=== PATIENT | male | born 1955 | race Caucasian/White ===

== ENCOUNTER 2017-08-05 15:00 | Outpatient (RCR) | payer BC ==
[~2017-08-05 15:00] MED LIST: HCT25T; LSNP20T; MULT1TAB63
== END 2017-09-06 10:12 | disposition home or self-care (01) ==
PROVIDERS: ATTEND Orthopaedic Surgery
DX: M48.07 Spinal stenosis, lumbosacral region (principal); M17.0 Bilateral primary osteoarthritis of knee

== ENCOUNTER 2017-11-01 13:00 | Outpatient (RCR) | payer BC | END 2017-11-05 15:12 | disposition home or self-care (01) | PROVIDERS: ATTEND Orthopaedic Surgery | DX: Z47.1 Aftercare following joint replacement surgery (principal); Z96.651 Presence of right artificial knee joint ==

== ENCOUNTER 2019-09-27 12:57 | Outpatient (RCR) | payer BC | END 2019-11-01 13:37 | disposition home or self-care (01) | PROVIDERS: ATTEND Nurse Practitioner Family | DX: M79.89 Other specified soft tissue disorders (principal) ==

== ENCOUNTER 2020-10-23 05:35 | Outpatient (CLI) | payer BC ==
[~2020-10-23] VITALS: Ht 182 cm; Wt 88.6 kg
[2020-10-23] MEDS ORDERED: VALS40TA9 PO (14:13)
[2020-10-23] MEDS ORDERED: ESCI5TAB16 PO (14:13)
== END 2020-10-23 14:34 | disposition home or self-care (01) ==
LOC: PREOP 05:35
PROVIDERS: ATTEND Surgery
DX: Z01.818 Encounter for other preprocedural examination (principal)

== ENCOUNTER 2020-10-30 06:54 | Day surgery (SDC) | payer BC ==
[~2020-10-30] VITALS: Ht 182 cm; Wt 88.6 kg
[2020-10-30] VITALS (10 sets, daily range): BP systolic 122–154; BP diastolic 78–96
[~2020-10-30 06:54] MED LIST changes: +ESCI5TAB16 PO; +VALS40TA9 PO
[2020-10-30] MEDS ORDERED: ROCURONIUM 10 MG/ML 5 ML SYRINGE IV ONE (07:01)
[2020-10-30] MEDS ORDERED: fentaNYL INJ 100 MCG/2 ML AMP ONE (07:01)
[2020-10-30] MEDS ORDERED: MIDAZOLAM 2 MG/2 ML (VERSED) VIAL ONE (07:01)
[2020-10-30] MEDS ORDERED: LIDOCAINE PF 2% 5 ML (XYLOCAINE) VIAL ONE (07:01)
[2020-10-30] MEDS ORDERED: SEVOFLURANE (ULTANE) 15 ML INHAL SOLN ONE ×3 (07:01→10:02)
[2020-10-30] MEDS ORDERED: proPOfol 200 MG/20 ML (DIPRIVAN) VIAL IV ONE (07:01)
[2020-10-30] MEDS ORDERED: ONDANSETRON 4 MG/2 ML (SDV) Z0FRAN ONE (07:01)
[2020-10-30] MEDS ORDERED: LIDOCAINE/EPI 1%-1:100,000 (XYLOCAINE) 20ML ONE (07:16)
[2020-10-30] MEDS ORDERED: LACTATED RINGERS 1,000 ML IV PRN (07:30)
[2020-10-30] MEDS ORDERED: ceFAZolin INJECTION 1,000 MG in WATER (STERILE) FOR INJECTION 10 ML IV ONE (07:30)
[2020-10-30] MEDS ORDERED: AMLO-251 PO (08:22)
[2020-10-30] MEDS ORDERED: GLYCOPYRROLATE 0.2 MG/ML (ROBINUL) 2 ML VIAL ONE ×2 (08:37→09:16)
[2020-10-30] MEDS ORDERED: HYDROmorphone 2 MG/ML VIAL (DILAUDID) ONE (08:41)
[2020-10-30] MEDS ORDERED: NEOSTIGMINE 3 MG/3 ML VIAL ONE (09:16)
[2020-10-30] MEDS ORDERED: KETOROLAC 30 MG/ML VIAL ONE (09:32)
--- NOTE | 2020-10-30 09:58 | Progress Note-Post Operative ---
Post-Operative Progess Note Surgeon (s)/Negotiations Director (s) Surgeon RED ARCE DO Negotiations Director: Marilia Pre-Operative Diagnosis Left INGUINAL HERNIA, possible right inguinal hernia Post-Operative Diagnosis Left Direct Inguinal Cord Lipoma Procedure & Operative Findings Date of Procedure 10/30/20 Procedure Performed/Findings 1. Laparoscopic Left Inguinal herniarraphy with mesh placement - Robotic assisted 2. Excision of Cord lipoma After informed consent was obtained, the patient was brought to the operating room and placed on the operating table in a supine position. He was sterilely prepped and draped in a normal fashion. Local lidocaine was used to infiltrate the skin above the umbilicus. I made an incision with #11 blade, carried down to the skin into subcutaneous tissue and then deepened down the subcutaneous tissue with Bovie electrocautery down to the fascia. Fascia was incised with Bovie electrocautery and bluntly entered the abdomen, swept a finger around, placed 0 Vicryl [id number] suture and placed limited trocar port under direct visualization. Created pneumoperitoneum, able to visualize the hernia and took a picture of this and then placed two 8 mm ports about 10 cm on either side of the midline port using a local lidocaine, 11 blade for stab incision and then advanced the robotic port under direct visualization. Once this was in, I then placed the patient in Trendelenburg and then placed the working instruments, the fenestrated bipolar and the scissors. Looked on the left side and saw a large direct inguinal hernia. No hernia defect was seen on the right side. Next, I came across the peritoneum approximately 8 cm away from the hernia defect, going across laterally starting lateral about 17cm and cutting toward the median umbilical ligament. I then carefully dissected the visceral peritoneum away and down and then in the midline, went through the parietal side and dissected down to the pubic tubercle, dissecting this down carefully pushing the peritoneum away, I was able to then visualize the pubic tubercle and Yvon's ligament. I went 2 cm posterior and at this point, we then had a critical view of the dissection, able to dissect 2 cm across the midline to the right side, 2 cm posterior to the Yvon's ligament, able to then parietalize the vas deferens and spermatic vessels right at the groove between Yvon's and iliac vein and able to dissect, make sure there was no peritoneum between those two, able to see the direct hernia space, took a picture of this, looked at the femoral space (no hernia seen). Then able to visualize the indirect hernia space. Next I looked on the cord and cord structures. There was a large cord lipoma that I was able to reduce and cut off. This was then removed through the port to get it out of the peritoneal space. I could clearly see the inguinal canal and the indirect space. Next I carried the posterior lateral dissection all the way out and then placed a 10 x 16 Midwieght Bard 3D mesh. It laid in nicely, covered the hernia defect and the rest of the area; it was above the peritoneum. I sutured it at the pubic tubercle with a 3-0 Vicryl suture and tied this off. This appeared to lay in very nicely. I then brought down the pneumoperitoneum to about 8 mmHg and then started closing the peritoneum. Started medially and used a 2-0 V-lock barbed suture to start a running stitch to close the peritoneum. This was closed nicely, took a picture of the closure at this point, then removed both needles had switched to a suture after school driver from the scissors. The patient was then placed back supine, removed all ports under direct visualization, allowed pneumoperitoneum to escape and then closed the supraumbilical incision, closing the fascia with 0 Vicryl suture previously placed. Copiously irrigated all incisions and then closed the two small 8 mm incisions with two interrupted 4-0 undyed Monocryl subcuticular stitches and closed the supraumbilical incision with three interrupted undyed Monocryl subcuticular stitch. Area was cleaned and dried. Dermabond was placed. The patient tolerated the procedure. The sponge, instrument and needle counts were correct at the end of the case. Dr. Capellan assisted during this surgery by making incisions, closing incisions, helping to identify anatomy and passing/retrieving suture and needles. Anesthesia Type GET Estimated Blood Loss Estimated blood loss (mL): scant Specimens/Packing Specimens Removed cord lipoma RED ARCE DO Oct 30, 2020 09:58
[2020-10-30] MEDS ORDERED: ACHD5005 PO (10:00)
--- NOTE | 2020-10-30 10:01 | Discharge Inst-Surgical ---
Discharge Inst-Surgical Depart Medication/Instructions New, Converted or Re-Newed RX: Transmitted to Pharmacy Patient Instructions Follow up Appt: Make appointment for 1 week. [phone] Instructions: No lifting greater than 20 pounds. No strenuous activity. May shower in 24 hours, no tub bath or soaking. Use incentive spirometer at home as directed. No Smoking Skin/Wound Care: May remove bandages in am. You need to leave the Dermabond on incision it will fall off on it's own. Symptoms to Report: Appetite Changes, Extremity Discoloration, Numbness/Tingling, Swelling Increased, Bleeding Excessive, Eyesight Changes, Pain Increased, Urine Color Change, Constipation(Persistent), Fever over 101 degree F, Pain/Pressure in chest, Urinating Difficulty, Cough Up/Vomit Blood, Heart Beat Irreg/Pounding, Pain/Pressure in jaw, Cramps in feet or legs, Lightheadedness, Pain/Pressure in shoulder, Diarrhea(Persistent), Memory Changes Suddenly, Questions/Concerns, Weight gain consecutive days, Dizziness/Fainting, Nausea/Vomiting, Shortness of Breath, Weight gain over 2 pounds If questions or concerns contact your physician Or seek help at emergency department. Activity Activity Instructions: Avoid Stress to Incision Driving Instructions: No Driving/Refer to Diet Discharge Diet: No Restrictions Diet After 24 Hours: Clear Liquid if Nauseous If Any Problems/Questions/Issu: Contact Your Physician, Go to Emergency Room Skin/Wound Care Infection Signs and Symptoms: Increased Redness, Foul Odor of Wound, Increased Drainage, Skin Itchy or Has a Rash, Increased Swelling, Temperature Above 101 F Wound Care Comment: heating pad to shoulder or neck tonight for pain Bathing Instructions: Shower Stitches/Horacio/Dermabond Dis: Dermabond Ice Pack: Ice On and Off Site RED ARCE DO Oct 30, 2020 10:01
[2020-10-30] MEDS ORDERED: HYDROmorphone 2 MG/ML VIAL (DILAUDID) IV ONE (10:30)
[2020-10-30] MEDS ORDERED: ONDANSETRON 4 MG/2 ML (SDV) Z0FRAN IVP PRN (10:30)
--- NOTE | 2020-10-30 13:15 | Anesthesia-General Post-Op ---
General Patient Condition Mental Status/LOC: Same as Preop Cardiovascular: Satisfactory Nausea/Vomiting: Absent Respiratory: Satisfactory Pain: Controlled Complications: Absent Post Op Complications Complications None Follow Up Care/Instructions Patient Instructions None needed. Anesthesia/Patient Condition Patient Condition Patient is doing well, no complaints, stable vital signs, no apparent adverse anesthesia problems. No complications reported per nursing. D/C home per [facility] [place] Criteria: Yes WILNER PATTEN CRNA Oct 30, 2020 13:15
== END 2020-10-30 12:20 | disposition home or self-care (01) ==
LOC: SDC 06:54
PROVIDERS: ATTEND Surgery
DX: K40.90 Unilateral inguinal hernia, without obstruction or gangrene, not specified as recurrent (principal); D17.6 Benign lipomatous neoplasm of spermatic cord; I10 Essential (primary) hypertension; F32.9 Major depressive disorder, single episode, unspecified; Z87.891 Personal history of nicotine dependence; Z79.899 Other long term (current) drug therapy
CPT/HCPCS: 49650; 87081; C1781

== ENCOUNTER 2022-07-03 10:36 | Outpatient (RCR) | payer OTHER, MEDICARE ==
[~2022-07-03 10:36] MED LIST changes: +ACHD5005 PO; +AMLO-251 PO
== END 2022-07-05 | disposition home or self-care (01) ==
PROVIDERS: ATTEND Orthopaedic Surgery Orthopaedic Trauma
DX: M47.812 Spondylosis without myelopathy or radiculopathy, cervical region (principal)

== ENCOUNTER 2022-07-16 09:18 | Outpatient (RCR) | payer OTHER, MEDICARE | END 2022-08-05 | disposition home or self-care (01) | PROVIDERS: ATTEND Orthopaedic Surgery Orthopaedic Trauma | DX: M47.812 Spondylosis without myelopathy or radiculopathy, cervical region (principal); I10 Essential (primary) hypertension ==